=== PATIENT | female | born 1980 | race American Indian/Alaskan Native ===

== ENCOUNTER 2016-11-28 09:20 | Emergency (ER) | payer SELFPAY ==
[2016-11-28 09:31] VITALS: BP 117/75
--- NOTE | 2016-11-28 10:05 | Emergency Department Report ---
Chief Complaint: Abdominal Pain Stated Complaint: ABD PAIN Time Seen by Provider: 11/28/16 10:03 - HPI History of Present Illness: 35 y/o female complain of abdominal pain x 2 months intermittent .pt denies any n/v/d at present .no prior medication . - ROS Review of Systems: per HPI - Exam Vital Signs: Vital Signs 11/28/16 09:25 Temperature 98.8 F Pulse Rate 88 Blood Pressure 117/75 O2 Sat by Pulse 100 Oximetry Physical Exam: GENERAL: The patient is well-developed and well-nourished. Patient is in NAD. HENT: Normocephalic. Atraumatic. Patient has moist mucous membranes. Throat: No erythema, swelling or exudates. EYES: Extraocular motions are intact, PERRL NECK: Supple. No meningitic signs are noted. There is no adenopathy noted. CHEST/LUNGS: Clear to auscultation bilaterally. No wheezing, rales or rhonchi noted. There is no respiratory distress noted. HEART/CARDIOVASCULAR: Regular rate and rhythm. Normal S1 S2. No murmurs, rubs , clicks, or gallops. ABDOMEN: Abdomen is soft, nontender.. Bowel sounds normoactive. There is no abdominal distention. Negative rebound tenderness : Deferred. SKIN: There is no rash. There is no edema. There is no diaphoresis. NEURO: The patient is A&Ox3. The patient has no focal neurologic deficits. MUSCULOSKELETAL: There is no tenderness or deformity. There is no limitation range of motion. PSYCH: Pt has appropriate mood and affect. MSE screening note: Focused history and physical exam performed. Due to findings the following was ordered: ED Disposition for MSE Condition: Stable Instructions: Abdominal Pain (ED)
[2016-11-28 10:54] LABS: Basophils % (Auto) 0.9 % (0.0-1.8); Eosinophils % (Auto) 3.4 % (0.0-4.3); Hematocrit 35.2 % (30.3-42.9); Hemoglobin 11.8 gm/dl (10.1-14.3); Mean Corpuscular HGB Conc 34 % (30-34); Mean Corpuscular Hemoglobin 31 pg (28-32); Mean Corpuscular Volume 91 fl (79-97); Platelet Count 257 K/mm3 (140-440); Red Blood Count 3.86 M/mm3 (3.65-5.03); Red Cell Distribution Width 13.8 % (13.2-15.2)
[2016-11-28 11:09] LABS: Anion Gap 16 mmol/L; BUN/Creatinine Ratio 7.77; Blood Urea Nitrogen 7 mg/dL (7-17); Calcium 8.6 mg/dL (8.4-10.2); Carbon Dioxide 26 mmol/L (22-30); Chloride 104.7 mmol/L (98-107); Glucose 83 mg/dL (65-100); Lipase 12 units/L (13-60); Potassium 4.2 mmol/L (3.6-5.0); Sodium 142 mmol/L (137-145)
--- NOTE | 2016-11-29 13:56 | ED Elopement Review ---
ED Pt Elopement review - Results review Lab results: Laboratory Tests 11/28/16 11/28/16 11/28/16 10:39 10:39 10:39 WBC 6.0 RBC 3.86 Hgb 11.8 Hct 35.2 MCV 91 MCH 31 MCHC 34 RDW 13.8 Plt Count 257 Lymph % (Auto) 28.2 [place] % (Auto) 11.0 H Eos % (Auto) 3.4 Baso % (Auto) 0.9 Lymph # 1.7 [place] # 0.7 Eos # 0.2 Baso # 0.1 Seg Neutrophils % 56.5 Seg Neutrophils # 3.4 Sodium 142 Potassium 4.2 Chloride 104.7 Carbon Dioxide 26 Anion Gap 16 BUN 7 Creatinine 0.9 Estimated GFR > 60 BUN/Creatinine Ratio 7.77 Glucose 83 Calcium 8.6 Lipase 12 L HCG, Quant < 2 - Call Back decision Pt Call Back Decision: Pt to F/U with PMD
== END 2016-11-28 19:00 | disposition left against medical advice (07) ==
LOC: ED 09:20
DX: R10.9 Unspecified abdominal pain (principal); Z53.21 Procedure and treatment not carried out due to patient leaving prior to being seen by health care provider
CPT/HCPCS: 36415; 80048; 83690; 84702; 85025